=== PATIENT | female | born 1990 | race Caucasian/White ===

== ENCOUNTER 2017-05-21 08:08 | Inpatient (IN) ==
[2017-05-21] MEDS ORDERED: Ringers Solution, Lactated 1,000 ML ONE (08:14)
[2017-05-21] MEDS ORDERED: Oxytocin 20 units/ LR 1000 mL 20 UNIT/1,000 ML BAG IVC ONE ×2 (08:15→10:35)
[2017-05-21] MEDS ORDERED: Famotidine 20 MG/2 ML VIAL IVP PRN (08:15)
[2017-05-21] MEDS ORDERED: Ondansetron 4 MG/2 ML VIAL IVP PRN (08:15)
[2017-05-21] MEDS ORDERED: Naloxone 0.4 MG/ML INJ IVP PRN (08:15)
[2017-05-21] MEDS ORDERED: Penicillin G Potassium 5,000,000 UNIT in D5% in Water (Mini-Bag+) 100 ML IVPB ONE (08:17)
[2017-05-21 08:29] LABS: Basophils # 0.1 K/mcL (0.0-0.2); Basophils % 0.4 %; Eosinophils # 0.2 K/mcL (0.0-0.6); Eosinophils % 1.1 %; Hematocrit 36.5 % (35.3-44.9); Hemoglobin 12.5 g/dL (11.5-15.4); Immature Granulocytes % 0.7 % (0-4); Immature Platelets 4.7 % (1.1-6.1); Lymphocytes # 3.4 K/mcL (0.6-4.6); Lymphocytes % 24.2 %; Mean Corpuscular HGB Conc 34.2 g/dL (31.6-35.5); Mean Corpuscular Hemoglobin 30.1 pg (28.0-33.3); Mean Platelet Volume 10.4 fL (9.4-12.4); Monocytes # 1.1 K/mcL (0.0-1.3); Monocytes % 7.9 %; Neutrophils # 9.3 K/mcL (1.6-8.9); Platelet Count 197 K/mcL (140-400); Red Blood Count 4.15 M/mcL (3.82-4.97); Red Cell Distribution Width 13.1 % (11.5-14.5); Segmented Neutrophils % 65.7 %
[2017-05-21] MEDS ORDERED: Lidocaine 1% 20 ML MDV ONE (09:03)
--- NOTE | 2017-05-21 09:58 | OB/GYN Procedure Note ---
Delivery - Delivery Date: 05/21/17 Provider: Pretty Garibay (Dr Franco present for proctoring) Intrapartum events: precipitous labor- <3hr Delivery induction: none Delivery monitor: external FHT, external uterine Anesthesia: none Estimated Blood Loss: 100 - Infant (s) Infant A Delivery Date: 05/21/17 Infant Delivery Time: 09:03 Presentation: vertex Position: FANNY Route of delivery: Gender: Male Viability: Viable at 1 minute: 9 at 5 mins: 9 Shoulder Dystocia: not encountered Placenta: spontaneous Cord: 3 umbilical vessels - Repair Episiotomy: none Laceration Description: Periurethral (hemostatic), Perineal - 1st Degree ( hemostatic) - Complications Delivery complications: none Delivery comments: Patient progressed to complete on own and began spontaneously pushing. of vigorous viable male infant in FANNY. No nuchal, no meconium, no shoulder dystocia encountered. placed on maternal abdomen. Apgars 9 and 9 at 1 and 5 minutes of age respectively. Cord clamped and cut after pulsations ceased. Placenta delivered spontaneously and appears grossly intact with 3 vessel cord. Uterus firm, midline, and 3 below after delivery of placenta with light lochia. Upon inspection, a hemostatic first degree and a hemostatic left periurethral laceration were present. Both were left to heal by second intention. and mother are both stable in skin to skin. EBL [address] Franco present for entire delivery for proctoring. - Disposition Mom disposition: stable in LDR [place] disposition: stable in LDR - Comments Comments: Weight deferred for reddy hour. Will weight after reddy hour complete.
--- NOTE | 2017-05-21 10:02 | OB/GYN History & Physical ---
Date of Encounter: 05/21/17 Time of Encounter: 09:59 Assessment and Plan (1) 38 weeks gestation of Current visit: Yes Status: Acute Admit to labor and delivery for labor Routine labor management Patient is GBS negative; began PCN due to not having records at admission POC per consult with Dr Franco History of Present Illness Chief complaint: Laboring HPI: Ms. Leiva is a 26 year old G1 now P1 who arrives to labor and delivery with complaints of her water breaking at 0700 and contractions every 2-3 minutes. She is a patient of Dr Greene. Her course was unremarkable per records. Her blood type is A+. Her GBS was negative. Her RPR, HepB, and HIV were negative. She is Varicella and Rubella immune. Past Med Surg Social Fam HX - Past Medical History Medical history: no medical history Psychiatric history: no psych history - Social History Smoking Status: Never smoker Smokeless Tobacco Status: No Alcohol use: none Obstetrical History - Pregnancies : 1 Para: 0 Term: 0 : 0 Ab's: 0 Livin Medications and Allergies Allergies No Known Allergies Allergy (Verified 08/28/16 16:12) Review of System OB All systems PM: reviewed and no additional remarkable complaints except as stated Exam - Constitutional Constitutional: well developed, well nourished, no acute distress, average body habitus - HEENT HEENT: Normocephaly, Mucus Membranes Moist - Lungs Respiratory exam: CTAB - Cardiovascular Cardiovascular exam: RRR, +S1, +S2 - Abdomen Abdomen: Present: bowel sounds normal, gravid, non tender - Extremities Extremities exam: normal capillary refill, normal inspection, radial pulses palpable and symetrical - Vulva Vulva: bilateral: normal - Vagina Vagina: Present: normal moisture - Cervix Dilation: 9 (Per RN exam) Effacement: 100 (Per RN exam) Station: 0 - Uterus Uterus exam: Present: normal size, normal contour (gravid) - Anus/Rectum Anus/Rectum: Present: normal perianal skin Results Result Diagrams: 05/21/17 08:00 Abnormal lab results WBC 14.1 K/mcL (4.3-11.1) H 05/21/17 08:00 Neutrophils # 9.3 K/mcL (1.6-8.9) H 05/21/17 08:00 All other labs normal. - VTE Reasons for not Prescribing Prophylaxis: Treatment not Indicated - Low risk for VTE
[2017-05-21] MEDS ORDERED: Oxytocin 20 units/ LR 1000 mL 20 UNIT/1,000 ML BAG IVC SCH (10:35)
[2017-05-21] MEDS ORDERED: Acetaminophen 325 MG TABLET PO PRN (12:20)
[2017-05-21] MEDS: Ibuprofen 600 MG TABLET PO SCH ×2 (13:08→20:17)
--- NOTE | 2017-05-22 07:02 | Discharge Summary ---
Date of Encounter: 05/22/17 Time of Encounter: 07:04 - Discharge Diagnosis (1) Vaginal delivery Priority: Primary Status: Acute Comments: Patient doing well s/p vaginal delivery day 1 Pain well controlled lochia light and without clots Able to urinate and pass flatus without difficulty Discharge home today (2) 38 weeks gestation of Priority: Secondary Status: Resolved - Discharge Medications Prescriptions: Ibuprofen [Motrin] 600 mg PO Q6HR #60 tablet Breast Pump [BREAST PUMP] 1 each .ROUTE AD #1 each Docusate [Colace] 100 mg PO BID #30 capsule Ferrous Sulfate 325 mg PO DAILY #30 tablet Home Medications: Breast Pump [BREAST PUMP] 1 each .ROUTE AD #1 each 05/22/17 [Rx] Docusate [Colace] 100 mg PO BID #30 capsule 05/22/17 [Rx] Ferrous Sulfate 325 mg PO DAILY #30 tablet 05/22/17 [Rx] Ibuprofen [Motrin] 600 mg PO Q6HR #60 tablet 05/22/17 [Rx] Vit/FA 1 each PO DAILY tablet 05/22/17 [Rx] Allergies/Adverse Reactions: Allergies No Known Allergies Allergy (Verified 08/28/16 16:12) Data Procedures and tests throughout hospitalization: Laboratory Tests 05/21/17 08:00 WBC 14.1 H RBC 4.15 Hgb 12.5 Hct 36.5 MCV 88.0 MCH 30.1 MCHC 34.2 RDW 13.1 Plt Count 197 MPV 10.4 Immature Gran % 0.7 Seg Neutrophils % 65.7 Lymphocytes % 24.2 Monocytes % 7.9 Eosinophils % 1.1 Basophils % 0.4 Neutrophils # 9.3 H Lymphocytes # 3.4 Monocytes # 1.1 Eosinophils # 0.2 Basophils # 0.1 Immature Plt Fraction 4.7 Labs on day of discharge: Labs from last 24 hours 05/21/17 08:00 WBC 14.1 H RBC 4.15 Hgb 12.5 Hct 36.5 MCV 88.0 MCH 30.1 MCHC 34.2 RDW 13.1 Plt Count 197 MPV 10.4 Immature Gran % 0.7 Seg Neutrophils % 65.7 Lymphocytes % 24.2 Monocytes % 7.9 Eosinophils % 1.1 Basophils % 0.4 Neutrophils # 9.3 H Lymphocytes # 3.4 Monocytes # 1.1 Eosinophils # 0.2 Basophils # 0.1 Immature Plt Fraction 4.7 Date of admission: 05/21/17 08:08 Primary care physician: Justin Nye Consults: 05/21/17 08:15 Consult to Peace Officer (W&C) [CONS] Stat Reason For Exam: precip labor Reason for SW Consult: Precipitous labor not naresh patient 05/21/17 12:20 Consult to Operating Room Manager [CONS] Routine Comment: Vaginal delivery, consult needed Discharging clinician: Pretty Garibay Anticipated date of discharge: 05/22/17 - Patient Status Disposition: Home, Self-Care Condition: Good Functional capacity at discharge: independent ambulation Overall status at discharge: patient is back to baseline - Discharge Instructions Follow Up With: Carrol Meza CNP [Primary Care Provider] - Jax Frausto MD [Non-Partnered Physician] - - Diet and Activity Activity: increase activity as tolerated Diet: regular diet Hospital Course Reason for admission: active labor, rupture of membranes Episiotomy: none Laceration: 1st degree Other procedures: none complications: none Discharge diagnosis: IUP at term delivered [place] baby: male Time Attestation: Total time spent providing and/or coordinating discharge services: Time Spent: Less than 30 minutes Exam - Constitutional Vitals: Temp Pulse Resp BP Pulse Ox 98.3 F 83 16 107/70 100 05/22/17 05:05 05/22/17 05:05 05/22/17 05:05 05/22/17 05:05 05/22/17 05:05 General appearance IM: cooperative, A&O X 3, pleasant - Respiratory Respiratory exam: Present: CTAB - Cardiovascular Cardiovascular exam IM: Present: RRR, +S1, +S2 - GI/Abdominal GI/Abdominal exam IM: normal bowel sounds, soft - Uterine Tone: Firm Uterus Position: At Umbilicus, Midline - Extremities Exam Extremities exam IM: Present: normal capillary refill, normal inspection, radial pulses palpable and symetrical - Neurological Exam Neurological exam: alert, oriented X3
[2017-05-22 08:28] VITALS: BP 99/63
[2017-05-22] MEDS ORDERED: Prenatal Vit/FA 1 EACH TABLET PO SCH (09:00)
== END 2017-05-22 13:16 | disposition home or self-care (01) ==
LOC: 1NENULAB → OBSVTOIN 08:08 → 1NENUOBS 12:17

== ENCOUNTER 2019-03-11 05:58 | Inpatient (IN) ==
[~2019-03-11 05:58] MED LIST: *HR* Nalbuphine 10 MG/ML AMPUL IVP PRN; Famotidine 20 MG/2 ML VIAL IVP PRN; Lidocaine 1% 20 ML MDV INFILT PRN; Metoclopramide 10 MG/2 ML VIAL IVP PRN; Naloxone 0.4 MG/ML INJ IVP PRN; Ondansetron 4 MG/2 ML VIAL IVP PRN; Ringers Solution, Lactated 1,000 ML IVC SCH
[2019-03-11 06:20] LABS: Basophils # 0.1 K/mcL (0.0-0.2); Basophils % 0.6 %; Eosinophils # 0.1 K/mcL (0.0-0.6); Eosinophils % 1.2 %; Hemoglobin 13.2 g/dL (11.5-15.4); Immature Granulocytes % 0.9 % (0-4); Lymphocytes # 2.4 K/mcL (0.6-4.6); Lymphocytes % 20.1 %; Mean Corpuscular HGB Conc 33.8 g/dL (31.6-35.5); Mean Corpuscular Hemoglobin 30.6 pg (28.0-33.3); Mean Corpuscular Volume 90.3 fL (83.0-100.0); Mean Platelet Volume 10.6 fL (9.4-12.4); Monocytes # 0.9 K/mcL (0.0-1.3); Monocytes % 7.2 %; Neutrophils # 8.2 K/mcL (1.6-8.9); Platelet Count 147 K/mcL (140-400); Red Blood Count 4.32 M/mcL (3.82-4.97); Red Cell Distribution Width 13.5 % (11.5-14.5)
[2019-03-11 06:38] LABS: Amphetamine Screen,Urine Negative ng/mL (Cutoff=1000); Barbiturate Screen,Urine Negative ng/mL (Cutoff=200)
[2019-03-11 06:39] LABS: Benzodiazepines Screen,Urine Negative ng/mL (Cutoff=300); Cannabinoid Screen,Urine Negative ng/mL (Cutoff = 50); Cocaine Screen,Urine Negative ng/mL (Cutoff= 300); Opiate Screen,Urine Negative ng/mL (Cutoff=300); Phencyclidine Screen,Urine Negative ng/mL (Cutoff=25)
--- NOTE | 2019-03-11 06:42 | OB/GYN History & Physical ---
Date of Encounter: 03/11/19 Time of Encounter: 06:37 Assessment and Plan (1) 38 weeks gestation of Current visit: Yes Status: Resolved Admit for labor GBS negative May have epidural/spinal upon request - patient declines Consider AROM for augmentation Anticipate vaginal delivery POC per consult with Dr Marte History of Present Illness Chief complaint: Contractions HPI: Ms. Leiva is a 28 year old at 38 weeks and 0 days that presents to triage with c/o contractions that began overnight. She states positive movement. She denies headache, vision changes, epigastric pain, leaking of fluid, vaginal discharge, and vaginal bleeding. She was seen by Emilee Carpenter for her care. She has a benign medical history and had no complications with her previous delivery/. Labs: GBS negative Blood type A+ Hep B NR RPR NR HIV NR Hep C NR Rubella Immune Varicella Immune Past Med Surg Social Fam HX - Past Medical History Medical history: non-contributory Psychiatric history: no psych history - Past Surgical History Surgical History: no surgical history Additional surgical history: wisdom teeth - Social History Smoking Status: Never smoker Smokeless Tobacco Status: No Alcohol use: occasionally Drug use: none - Family History Mother Living Status: Still Living Hx Family Cancer: Yes Obstetrical History - Pregnancies : 3 Para: 1 Term: 1 : 0 Ab's: 1 Livin Medications and Allergies Vit/FA 1 each PO DAILY tablet 05/22/17 [Rx] Allergy/AdvReac Type Severity Reaction Status Date / Time No Known Allergies Allergy Verified 03/11/19 05:38 Review of System OB All systems PM: reviewed and no additional remarkable complaints except as stated Exam - Constitutional Constitutional: well developed, well nourished, average body habitus, mild distress - HEENT HEENT: Normocephaly, Mucus Membranes Moist - Neck Neck exam: full ROM - Lungs Respiratory exam: CTAB - Cardiovascular Cardiovascular exam: RRR, +S1, +S2 - Breasts Breast: bilateral: normal - Abdomen Abdomen: Present: bowel sounds normal, gravid, non tender - Extremities Extremities exam: normal capillary refill, normal inspection, radial pulses palpable and symmetrical Deep Tendon Reflex Grade: 2+ Normal - Vulva Vulva: bilateral: normal - Vagina Vagina: Present: normal moisture - Cervix Dilation: 7 (Per RN exam) Station: -1 - Uterus Uterus exam: Present: normal size (appropriate for gestation), normal contour - Comments Comments: Cat 1 tracing Results Result Diagrams: 03/11/19 05:41 Abnormal lab results WBC 11.8 K/mcL (4.3-11.1) H 03/11/19 05:41 All other labs normal. - VTE Reasons for not Prescribing Prophylaxis: Treatment not Indicated - Low risk for VTE
--- NOTE | 2019-03-11 06:59 | OB Labor Progress Note ---
Date of Encounter: 03/11/19 Time of Encounter: 06:57 Labor Progress Note - Subjective Subjective: Patient requesting AROM to "move things along". Discussed pros/cons and offered DIRECTOR TRANSLATION to see patient; patient declines pain medications - Vital Signs Vital Signs: VSS - Cervix Cervix: 8/100/0 - Heart Tones Heart Tones: 155 baseline with moderate variability and 15 x 15 accels No decels - [place]: No contractions picking up on toco. Per patient report and palpation, contractions are every 2-4 minutes and strong by palpation - Interventions Interventions: AROM for scant amount of clear fluid. Fetus and patient tolerated well - Plan Physician notified: No Plan: Continue routine labor management GBS negative Anticipate vaginal delivery POC per consult with Dr Marte
[2019-03-11] MEDS ORDERED: Oxytocin 20 units/ LR 1000 mL 20 UNIT/1,000 ML BAG IVC ONE ×2 (07:00→10:31)
--- NOTE | 2019-03-11 08:32 | OB/GYN Procedure Note ---
Delivery - Delivery Date: 03/11/19 Provider: Khushi Jimenez Intrapartum events: none Delivery induction: none Delivery monitor: external FHT, external uterine Anesthesia: none Quantitated Blood Loss: 100 - Infant (s) Infant A Delivery Date: 03/11/19 Infant Delivery Time: 08:05 Presentation: vertex Position: FANNY Route of delivery: Gender: Female Viability: Viable at 1 minute: 8 at 5 mins: 9 Shoulder Dystocia: not encountered Specimens collected: cord blood Placenta: spontaneous Cord: 3 umbilical vessels - Repair Episiotomy: none Laceration Description: None - Complications Delivery complications: none Delivery comments: Called to room for delivery. Under maternal effort, spontaneous delivery of viable female infant over intact perineum. placed on maternal abdomen for drying and stimulation. Nuchal cord x 1 noted, delivered through. Cord clamped and cut after pulsation ceased. Spontaneous delivery of intact placenta, EBL 100 mL's. No shoulder dystociaor meconium encountered. Mother and in kangaroo care for 2 hour recovery. - Disposition Mom disposition: stable in LDR disposition: stable in LDR
[2019-03-11] MEDS ORDERED: Ibuprofen 600 MG TABLET PO PRN (11:17)
[2019-03-11] MEDS ORDERED: Lanolin 7 G OINT...G. TP PRN (11:17)
[2019-03-11] MEDS ORDERED: Measles/Mumps/Rubella Vacc 0.5 ML VIAL SQ PRN (11:17)
[2019-03-11] MEDS ORDERED: Oxytocin 20 units/ LR 1000 mL 20 UNIT/1,000 ML BAG IVC SCH (11:17)
[2019-03-11] MEDS ORDERED: Acetaminophen 325 MG TABLET PO PRN (11:17)
[2019-03-11] MEDS: Prenatal Vit/FA 1 EACH TABLET PO SCH (12:07)
[2019-03-12 08:05] VITALS: BP 100/69
--- NOTE | 2019-03-12 08:42 | Discharge Summary ---
Date of Encounter: 03/12/19 Time of Encounter: 08:40 - Discharge Diagnosis (1) Status post normal vaginal delivery Priority: Primary Status: Acute Comments: Pain well controlled Lochia minimal without clots Voiding adequately Passing flatus Breast feeding Declines contraception today; considering IUD at follow up Discharge today POC per consult with Dr. Marte - Discharge Medications Prescriptions: New Acetaminophen [Tylenol] 650 mg PO Q6HR PRN tablet PRN Reason: Mild Pain Ibuprofen [Motrin] 600 mg PO Q6HR PRN #30 tablet PRN Reason: Cramping Breast Pump [BREAST PUMP] 1 each .ROUTE AD #1 each Docusate [Colace] 100 mg PO BID #60 capsule Ferrous Sulfate 325 mg PO DAILY #90 tablet Lanolin [Lansinoh] 1 appl TP TID PRN oint...g. PRN Reason: Sore Nipples Continue Vit/FA 1 each PO DAILY tablet Home Medications: Vit/FA 1 each PO DAILY tablet 05/22/17 [Rx] Acetaminophen [Tylenol] 650 mg PO Q6HR PRN tablet 03/12/19 [Rx] Breast Pump [BREAST PUMP] 1 each .ROUTE AD #1 each 03/12/19 [Rx] Docusate [Colace] 100 mg PO BID #60 capsule 03/12/19 [Rx] Ferrous Sulfate 325 mg PO DAILY #90 tablet 03/12/19 [Rx] Ibuprofen [Motrin] 600 mg PO Q6HR PRN #30 tablet 03/12/19 [Rx] Lanolin [Lansinoh] 1 appl TP TID PRN oint...g. 03/12/19 [Rx] Allergies/Adverse Reactions: Allergy/AdvReac Type Severity Reaction Status Date / Time No Known Allergies Allergy Verified 03/11/19 05:38 Data Procedures and tests throughout hospitalization: Laboratory Tests 03/11/19 03/11/19 05:41 05:41 WBC 11.8 H RBC 4.32 Hgb 13.2 Hct 39.0 MCV 90.3 MCH 30.6 MCHC 33.8 RDW 13.5 Plt Count 147 MPV 10.6 Immature Gran % 0.9 Seg Neutrophils % 70.0 Lymphocytes % 20.1 Monocytes % 7.2 Eosinophils % 1.2 Basophils % 0.6 Neutrophils # 8.2 Lymphocytes # 2.4 Monocytes # 0.9 Eosinophils # 0.1 Basophils # 0.1 Urine Opiates Screen Negative Ur Barbiturates Screen Negative Ur Phencyclidine Scrn Negative Ur Amphetamines Screen Negative U Benzodiazepines Scrn Negative Urine Cocaine Screen Negative U Marijuana (THC) Screen Negative Ur Drug Screen Interp See Below Date of admission: 03/11/19 05:59 Consults: 03/11/19 11:17 Consult to Drivers License Examiner [CONS] Routine Comment: Vaginal delivery, consult needed Discharging clinician: Pretty Garibay Anticipated date of discharge: 03/12/19 - Patient Status Disposition: Home, Self-Care Functional capacity at discharge: independent ambulation Overall status at discharge: patient is back to baseline - Discharge Instructions Follow Up With: Temi Baron MD [Partnered Physician] - - Diet and Activity Activity: increase activity as tolerated Diet: advance to your usual diet Hospital Course Reason for admission: active labor, IUP at term Delivery: Episiotomy: none Laceration: none complications: none Discharge diagnosis: IUP at term delivered [place] baby: female Time Attestation: Total time spent providing and/or coordinating discharge services: Time Spent: Less than 30 minutes Exam - Constitutional Vitals: Temp Pulse Resp BP Pulse Ox 98.0 F 77 14 100/69 99 03/12/19 08:03 03/12/19 08:03 03/12/19 08:03 03/12/19 08:03 03/12/19 08:03 General appearance IM: A&O X 3, pleasant, no acute distress, answers questions appropriately - Respiratory Respiratory exam: Present: CTAB. Absent: respiratory distress, wheezes, tachypnea - Cardiovascular Cardiovascular exam IM: Present: RRR, +S1, +S2. Absent: tachycardia - GI/Abdominal GI/Abdominal exam IM: normal bowel sounds, soft, no peritoneal signs - Rectal Rectal exam: deferred - Uterine Tone: Firm Uterus Position: 2 Fingers Below Umbilicus, Midline - Extremities Exam Extremities exam IM: Present: full ROM, normal capillary refill, normal inspection, radial pulses palpable and symmetrical. Absent: tenderness - Neurological Exam Neurological exam: alert, normal gait, oriented X3, strengths equal and symetr throughout
[2019-03-12] MEDS: Prenatal Vit/FA 1 EACH TABLET PO SCH (08:44)
== END 2019-03-12 11:37 | disposition home or self-care (01) | DRG 807 ==
LOC: 1NENULAB → 1NENUOBS 10:58
PROVIDERS: ADMIT Advanced Practice Midwife; ATTEND Advanced Practice Midwife